=== PATIENT | female | born 1990 | race Caucasian/White ===

== ENCOUNTER 2018-10-01 10:19 | Emergency (ER) | payer BC ==
[2018-10-01] MEDS: IBUPROFEN 800 MG TAB PO (13:01)
== END 2018-10-01 13:21 | disposition home or self-care (01) ==
LOC: FTE 10:19
DX: S01.112A Laceration without foreign body of left eyelid and periocular area, initial encounter (principal); Y04.0XXA Assault by unarmed brawl or fight, initial encounter
CPT/HCPCS: 12011; 70486; 81025; 99284-25

== ENCOUNTER 2018-10-10 15:17 | Emergency (ER) | payer BC | END 2018-10-10 16:31 | disposition home or self-care (01) | LOC: FTE 15:17 | DX: Z48.02 Encounter for removal of sutures (principal) | CPT/HCPCS: 99281; Z7502 ==